=== PATIENT | male | born 1995 | race Two or more races ===

== ENCOUNTER 2018-04-27 19:23 | Emergency (ER) | payer OTHER ==
--- NOTE | 2018-04-27 21:11 | ED ---
Bite Injury/Animal - HPI Summary HPI Summary: Patient here for concern about bat exposure last night in his basement. Patient denies any known bite or bleeding as bat flew around him. Patient states he locked pablito bat in the basement, and that animal control will be there tomorrow to take care of bat. Denies any known symptoms or injury. Medical history is none. Resident [facility]. - History of Current Complaint Chief Complaint: EDAnimalBite Stated Complaint: EXPOSED TO A BAT Time Seen by Provider: 04/27/18 20:42 Hx Obtained From: Patient Onset of Injury: Happened hours ago Type of Bite: Animal Severity Currently: None Pain Intensity: 0 Pain Scale Used: 0-10 Numeric Associated Signs And Symptoms: Positive: Negative - Allergies/Home Medications Allergies/Adverse Reactions: Allergies Allergy/AdvReac Type Severity Reaction Status Date / Time No Known Allergies Allergy Verified 04/27/18 19:49 PMH/Surg Hx/FS Hx/Imm Hx Endocrine/Hematology History: Denies: Hx Anticoagulant Therapy Cardiovascular History: Denies: Hx Cardiac Arrest History: Denies: Hx Dialysis Neurological History: Denies: Hx CVA Infectious Disease History: No Infectious Disease History: Denies: Traveled Outside the [place] in Last 30 Days - Social History Occupation: Student Alcohol Use: Occasionally Substance Use Type: Reports: None Smoking Status (MU): Never Smoked Tobacco Review of Systems Constitutional: Negative Eyes: Negative ENT: Negative Cardiovascular: Negative Respiratory: Negative Gastrointestinal: Negative Genitourinary: Negative Musculoskeletal: Negative Skin: Negative Neurological: Negative Psychological: Normal All Other Systems Reviewed And Are Negative: Yes Physical Exam Triage Information Reviewed: Yes Vital Signs On Initial Exam: Initial Vitals Temp Pulse Resp BP Pulse Ox 97.3 F 76 18 135/90 100 04/27/18 19:42 04/27/18 19:42 04/27/18 19:42 04/27/18 19:42 04/27/18 19:42 Vital Signs Reviewed: Yes Appearance: Positive: Well-Appearing Skin: Positive: Warm Head/Face: Positive: Normal Head/Face Inspection Eyes: Positive: Normal Neck: Positive: Supple Respiratory/Lung Sounds: Positive: Clear to Auscultation Cardiovascular: Positive: Normal Abdomen Description: Positive: Nontender Musculoskeletal: Positive: Normal Neurological: Positive: Normal Psychiatric: Positive: Normal AVPU Assessment: Alert - Yvan Coma Scale Best Eye Response: 4 - Spontaneous Best Motor Response: 6 - Obeys Commands Best Verbal Response: 5 - Oriented Coma Scale Total: 15 Diagnostics - Vital Signs Vital Signs Temp Pulse Resp BP Pulse Ox 04/27/18 19:42 97.3 F 76 18 135/90 100 - Laboratory Lab Statement: Any lab studies that have been ordered have been reviewed, and results considered in the medical decision making process. Bite Injury Course/Dx - Course Course Of Treatment: Patient here for concern about bat exposure last night in his basement. Patient denies any known bite or bleeding as bat flew around him. Patient states he locked pablito bat in the basement, and that animal control will be there tomorrow to take care of bat. Denies any known symptoms or injury. Medical history is none. Resident [facility]. [facility] contacted. Spoke with Meme Chun of [facility] states that as patient is adult and was alert and awake in the room and does not remember any contact with the bat and thus there is no concern for risk of exposure to rabies, and that no prophylactic treatment is necessary. - Diagnoses Provider Diagnosis: Exposure to bat without known bite Discharge - Sign-Out/Discharge Documenting (check all that apply): Patient Departure - Discharge Plan Condition: Stable Disposition: HOME Patient Education Materials: Rabies (ED) Referrals: No Primary Care Phys,NOPCP [Primary Care Provider] - Additional Instructions: Follow-up with animal control. Return to the ED for any new or worsening symptoms - Billing Disposition and Condition Condition: STABLE Disposition: Home
[2018-04-27 21:51] VITALS: BP 126/80
== END 2018-04-27 21:52 | disposition home or self-care (01) ==
LOC: ED 19:23
DX: Z20.3 Contact with and (suspected) exposure to rabies (principal)
CPT/HCPCS: 99281